=== PATIENT | male | born 1970 | race Caucasian/White ===

== ENCOUNTER 2018-12-07 13:33 | Inpatient (IN) ==
[2018-12-07] MEDS ORDERED: Clindamycin 900 MG/50 ML 900 MG/50 ML IV.SOLN IVPB ONE (13:53)
--- NOTE | 2018-12-07 13:53 | History & Physical Report ---
Date of Encounter: 12/07/18 Time of Encounter: 13:53 24 Hour HP Update - Instructions Instructions: If the History and Physical is less than 30 days old and was completed prior to A.M. admission and or procedure and has NOT been updated on calendar day of procedure please complete this update prior to performing procedure. - Update Patient reports changes in Medical Condition: No Changes in examination, assessment, or condition: No Changes in Medication: No Preop tests/diagnostics Reviewed: Yes Surgery Remains Indicated: Yes Consent for Planned Operative Procedure(s) Verified: Yes - Pre-Operative Checklist Preoperative Checklist Indicated: No Prophylactic Antibiotic Ordered: Yes Is VTE Prophylaxis Indicated?: Yes
[2018-12-07] MEDS ORDERED: Ringers Solution, Lactated 1,000 ML IVC SCH (14:00)
--- NOTE | 2018-12-07 14:21 | Anesthesia Evaluation PreOp ---
Date of Encounter: 12/07/18 Time of Encounter: 14:19 - Past History Planned Operation: Right Total Shoulder Cardiac History: HTN Pulmonary History: Former smoker (quit in 1999), Snore BLENDER History: Denies Any Significant HX Other Medical History: Other (depression) Anesthesia History: No Prior Anesthetic Complications, Past Anesthesia Alcohol Use: none Drug use: none Medications and Allergies Allergy/AdvReac Type Severity Reaction Status Date / Time No Known Allergies Allergy Verified 12/07/18 14:37 - Meds/Allergy Pre-op Review Medications Reviewed: Yes Allergies Reviewed: Yes Beta Blockers on Current Med List: No Anesthesia Exam O2 Sat Height 1.73 m Height 1.73 m Weight 118.388 kg Weight 118.388 kg O2 Sat by Pulse Oximetry 99 O2 Sat by Pulse Oximetry 99 Vital Signs Temp Pulse Resp BP Pulse Ox 98.0 F 83 18 132/85 99 12/07/18 13:52 12/07/18 13:52 12/07/18 13:52 12/07/18 13:52 12/07/18 13:52 Height: 5'8'' Weight: 261 lbs NPO (# of Hours): 8 Pain Scale: 6 (right shoulder) Pain Scale Used: Numeric (1 - 10) - HEENT Pupil (Motor): EOMI Mallampati: III Teeth: Normal Oral Opening: Greater than 3 - BLENDER LOC: Oriented BLENDER Motor: Normal RUE, Normal LUE, Normal RLE, Normal LLE, Normal Face BLENDER Sensory: Normal: RUE, LUE, RLE, LLE, Face - Cardiac Rhythm: Regular Murmur: None - Pulmonary Breath Sounds: bilateral Clear Respiratory Effort: Symmetrical Anesthesia Assess/Plan ASA Score: 2 Level of consciousness: Cooperative, Oriented, Tranquil Anesthetic Plan: General, Regional Nerve Block Monitoring Plan: Standard Monitors Recovery Plan: PACU
[2018-12-07] MEDS ORDERED: *HR* OxyCODONE Immed Rel 5 MG TABLET PO PRN (14:56)
[2018-12-07] MEDS ORDERED: Ondansetron 4 MG/2 ML VIAL IVP ONE (14:56)
[2018-12-07] MEDS ORDERED: *HR* Midazolam HCl 2 MG/2 ML VIAL ONE (15:03)
[2018-12-07] MEDS ORDERED: *HR* Propofol 200 MG/20 ML VIAL IVP ONE (15:03)
[2018-12-07] MEDS ORDERED: *HR* FentaNYL (PF) 100 MCG/2 ML VIAL ONE (15:03)
[2018-12-07 15:04] LABS: Basophils % 0.2 %; Eosinophils # 0.2 K/mcL (0.0-0.6); Eosinophils % 2.2 %; Hemoglobin 13.8 g/dL (12.9-16.9); Immature Granulocytes % 0.5 % (0-4); Lymphocytes # 1.9 K/mcL (0.6-4.6); Lymphocytes % 21.2 %; Mean Corpuscular HGB Conc 32.9 g/dL (31.6-35.5); Mean Corpuscular Hemoglobin 29.2 pg (28.0-33.3); Mean Corpuscular Volume 88.8 fL (83.0-100.0); Mean Platelet Volume 9.2 fL (9.4-12.4); Monocytes # 0.5 K/mcL (0.0-1.3); Monocytes % 5.1 %; Neutrophils # 6.2 K/mcL (1.6-8.9); Platelet Count 261 K/mcL (140-400); Red Blood Count 4.73 M/mcL (4.19-5.50); Segmented Neutrophils % 70.8 %; White Blood Count 8.8 K/mcL (4.3-11.1)
[2018-12-07] MEDS ORDERED: Lidocaine -MPF 2% 2 ML VIAL ONE (15:06)
[2018-12-07] MEDS ORDERED: *HR* Midazolam HCl 5 MG/5 ML VIAL IVP ONE (15:11)
[2018-12-07] MEDS ORDERED: Ropivacaine/PF 0.5% 30 ML VIAL ONE (15:11)
[2018-12-07] MEDS ORDERED: ROPIVACAINE/PF/NS 0.25% 1 EACH SYRINGE INTRAART ONE (15:11)
[2018-12-07 15:23] LABS: BUN/Creatinine Ratio 15 (6-26); Blood Urea Nitrogen 14 mg/dL (6-20); Calcium 9.1 mg/dL (8.6-10.3); Carbon Dioxide 29 mEq/L (23-29); Chloride 103 mEq/L (98-107); Glucose 90 mg/dL (70-105); Osmolality,Calculated 284 (280-300); Sodium 137 mEq/L (136-145); eGFR For African Americans > 60 (> 60); eGFR For Non-African Americans > 60 (> 60)
[2018-12-07] MEDS ORDERED: Ethanol\\Acetic Acid\\Na Ace\\Ben 1,000 ML IRRIG.SOLN IR ONE (15:27)
[2018-12-07] MEDS ORDERED: *HR* Succinylcholine 200 MG/10 ML VIAL IVP ONE (15:32)
--- NOTE | 2018-12-07 15:34 | Anesthesia Procedures ---
Date of Encounter: 12/07/18 Time of Encounter: 15:15 Procedures: Anesthesia - Nerve Block Procedure Date: 12/07/18 Time: 15:15 Surgical Procedure: right total shoulder replacment Checklist: Correct Patient Identifier, Correct procedure, History checked Correct side: Right Monitor Applied: BP, Pulse Oximetry Supplemental Oxygen via Nasal Cannula (L/min): 2 Sedation: Versed (mg): 5 Indication: Post Op Analgesia Block Type: Supraclavicular Catheter placed: No Sterile Technique: Yes Ultrasound used: Yes Anatomy identified: Yes Visual spread of Local: Yes Neuro Stimulation: No Nerve Stimulator Range: 0.2 - 0.4 mA Blood on Needle Aspiration: No Smooth Injection of Local: Yes Pain with Injection of Local: No Prep: Chlorhexadine Needle: 22 x 50 mm Stimuplex Local: Ropivacaine (30ml of 0.5% rop with 8md decadron for supraclav, (8ml for SCP, 12ml for ICB all for 0.25% rop plain)) Volume (cc): 52 Number of Attempts: 1 Complications: None/effective block Vitals: vss though out, block per request of surgeon.
[2018-12-07] MEDS ORDERED: Ondansetron 4 MG/2 ML VIAL ONE (16:14)
[2018-12-07] MEDS ORDERED: Dexamethasone 4 MG/ML VIAL ONE (16:14)
--- NOTE | 2018-12-07 16:39 | Orthopedic Operative Note ---
Date of procedure: 12/07/18 Pre-op diagnosis: Right shoulder cuff tear arthropathy Post-op diagnosis: same Procedure: Procedure: Total Shoulder Replacment Reverse, right Estimated blood loss: 100 cc Hardware: Metal and polyethylene replacement: Arthrex 28, +2 , 30 mm post glenoid baseplate, 4 locking 5.5 screw, 42+4 glenosphere, 10 Sparta humeral stem, poly insert 3 Exam Under anesthesia: Full motion no instability Procedural Notes: Irreparable rotator cuff tear Operative procedure: The patient was brought to the operating room and placed on the operating room table. After general anesthesia was administered the operative shoulder was examined. Findings were noted. The patient was placed in the modified beachchair position. All pressure points were padded appropriately. And the head was stabilized in the neutral position. The operative extremity was prepped and draped in the sterile surgical fashion. The patient received IV antibiotics prior to skin incision. A standard deltopectoral approach was made to the operative shoulder. Incision was made to the skin and subcutaneous tissue,hemo stasis was obtained with Bovie cautery. Using careful blunt dissection the cephalic vein was identified and mobilized medially. The deltopectoral interval was developed and the clavipectoral fascia was incised. The subscap was released off the lesser tuberosity and tagged with #2 FiberWire suture subscap was irreparable. The humerus was dislocated patient noted to have irreparable tear supraspinatus tendon, and the humeral cut was made along the anatomic neck. Anterior and posterior Bankart retractors were placed to expose the glenoid. The glenoid guide was seated and the centering hole was made. It was reamed with the appropriate reamer. The baseplate was seated and secured with 4 locking 5.5 screw. The baseplate was irrigated and dried and the Glenosphere was seated and secured with the Flanagan taper. The Flanagan taper was tested and found to be secure, glenosphere fixation was secondarily secured with the central screw. The humerus was redislocated and prepared with the diaphyseal reamers, followed by a broaching process up to the appropriate size Sparta stem in the patient's anatomic version. The metaphyseal reamer was then utilized. Trial reduction found the shoulder to be relocatable. Trial components were removed and the Sparta stem was impacted in place in the patient's anatomic version. Trial reduction found the shoulder to be relocatable and stable with the appropriate 3 poly. Trial component was removed and the real implant was seated and secured the shoulder was reduced. The shoulder had excellent motion and exc ellent stability and no evidence of dislocation. The deep tissue was irrigated with pulse irrigation. The PA close the shoulder. The deltopectoral interval was closed with a running #1 PDS suture, subcutaneous tissue was irrigated and closed with 0 PDS suture, the skin was closed with Dermabond. The patient was placed in a sterile dressing, abduction brace and extubated. The patient was then transferred to the recovery room in stable condition. Anesthesia: GETA Surgeon: Bharath Burnham Was there an power plant assistant present: No Estimated blood loss (cc): 100 Condition: stable Disposition: PACU
--- NOTE | 2018-12-07 17:00 | Discharge Summary ---
Orders not resulted at time of discharge: Pending orders 12/07/18 16:29 Surgical Pathology [PTH] Routine Date of Encounter: 12/08/18 Time of Encounter: 10:45 - Discharge Diagnosis (1) Rotator cuff tear arthropathy of right shoulder Priority: Primary Status: Chronic (2) Status post total replacement of right shoulder Priority: Primary Status: Acute (3) Obesity Priority: Secondary Status: Chronic Qualifiers: Obesity type: unspecified obesity type Obesity classification: adult class 2 (BMI 35 - 39.9) Serious obesity comorbidity presence: unspecified whether serious comorbidity present Body mass index: BMI 37.0-37.9 Qualified Code(s): E66.9 - Obesity, unspecified; Z68.37 - Body mass index (BMI) 37.0-37.9, adult (4) Chronic pain Priority: Secondary Status: Chronic Qualifiers: Chronic pain type: other chronic pain Qualified Code(s): G89.29 - Other chronic pain - Hospital Course Hospital course: Mr. Gamez is a 47 year old male s/p Total Shoulder Replacment Reverse, right [Right shoulder cuff tear arthropathy] 12/07/18 Patient seen at bedside. A&Ox3 Dressing and incision c/d/i No calf tenderness, erythema, or warmth. Neurovascularly intact b/l UE. Labwork, vitals, and medications reviewed. Pain control: Adequate Participating in therapy. All questions and concerns addressed. Educated on use of incentive spirometer, ambulation, and hydration. Patient educated on post-operative restrictions and care. Addressed: continue chronic pain medication The patient's postoperative course was uneventful. Progressed from intravenous analgesic needs to oral analgesic needs only. Remained neurovascularly intact and mobilized satisfactorily. All radiographic studies were satisfactory. Patient course and disposition discussed with Dr. Burnham. Patient is discharged to home with plan for rehabilitation and outpatient orthopedic follow up has been arranged. - Time Spent with Patient Total time spent providing and/or coordinating discharge services: - Discharge Medications Prescriptions: New Cyclobenzaprine [Flexeril] 10 mg PO TID PRN 7 Days #21 tablet PRN Reason: Spasms Continued OxyCODONE Immed Rel [Roxicodone 30 MG] 30 mg PO Q4H PRN PRN Reason: Pain Morphine Sulfate [Morphine Sulfate ER] 60 mg PO TID Home Medications: Morphine Sulfate [Morphine Sulfate ER] 60 mg PO TID 12/07/18 [History] OxyCODONE Immed Rel [Roxicodone 30 MG] 30 mg PO Q4H PRN 12/07/18 [History] Cyclobenzaprine [Flexeril] 10 mg PO TID PRN 7 Days #21 tablet 12/08/18 [Rx] Allergies/Adverse Reactions: Allergy/AdvReac Type Severity Reaction Status Date / Time No Known Allergies Allergy Verified 12/07/18 14:37 Date of admission: 12/07/18 Primary care physician: Rona Mcdowell MD Discharging clinician: Bharath Burnham Anticipated date of discharge: 12/08/18 - VTE Documentation of Mechanical Device: Venous foot pump, device Labs on day of discharge: Labs from last 24 hours 12/07/18 12/07/18 14:51 14:51 WBC 8.8 RBC 4.73 Hgb 13.8 Hct 42.0 MCV 88.8 MCH 29.2 MCHC 32.9 RDW 13.0 Plt Count 261 MPV 9.2 L Immature Gran % 0.5 Seg Neutrophils % 70.8 Lymphocytes % 21.2 Monocytes % 5.1 Eosinophils % 2.2 Basophils % 0.2 Neutrophils # 6.2 Lymphocytes # 1.9 Monocytes # 0.5 Eosinophils # 0.2 Basophils # 0.0 Sodium 137 Potassium 4.0 Chloride 103 Carbon Dioxide 29 BUN 14 Creatinine 0.91 Est GFR ( Amer) > 60 Est GFR (Non-Af Amer) > 60 BUN/Creatinine Ratio 15 Glucose 90 Calculated Osmolality 284 Calcium 9.1 - Patient Status Disposition: Home, Self-Care Condition: Good Functional capacity at discharge: independent ambulation Overall status at discharge: patient is progressing back to baseline - Discharge Instructions Instructions: Joint Replacement Surgery (GEN), Joint Replacement Surgery, Fence Installer (GEN) Follow Up With: Rona Mcdowell MD [Primary Care Provider] - Alta Newman CNP [Advanced Practice Nurse] - 12/17/18 11:00 am Additional Instructions: Do NOT push yourself up off bed or chair using surgical arm Do NOT lift anything heavier than a glass of water for [address] your arm in extreme positions ex: Straight behind your back Leave dressing in place, keep incision clean and dry DO NOT take baths, swim, or soak incision Wear brace when sleeping, in public Follow exercises given by provider and therapy NO driving until cleared by provider - Diet and Activity Activity: as per physical therapy Diet: advance to your usual diet
[2018-12-07] MEDS: *HR* HYDROmorphone (PF) 1 MG/ML SYRINGE IVP PRN ×4 (17:18→17:43)
--- NOTE | 2018-12-07 17:53 | Anesthesia Evaluation Post Op ---
Date of Encounter: 12/07/18 Time of Encounter: 17:52 - Vital Signs Vital Signs: Vital Signs/O2 Sat, Most Current Temp Pulse Resp BP Pulse Ox 97.7 F 93 14 130/88 96 12/07/18 17:28 12/07/18 17:48 12/07/18 17:48 12/07/18 17:48 12/07/18 17:48 - Airway Airway: Non-obstructed - Cardiovascular Regular Rate - Mental Status Mental Status: Alert & Oriented, Answers Appropriately - Pain Pain Scale: 5 Pain Scale used: Numeric (1 - 10) - Nausea Vomiting Nausea Vomiting: Not Present - Hydration Hydration: Ice chips - Discharge PostOp Status: Transfer Patient to floor
[2018-12-07 17:57] LABS: Hematocrit 39.1 % (37.5-50.1); Hemoglobin 12.8 g/dL (12.9-16.9)
[2018-12-07] MEDS ORDERED: *HR* Enoxaparin 30 MG/0.3 ML SYRINGE SQ SCH (18:00)
[2018-12-07] MEDS ORDERED: MOM Conc 10 ML UD.LIQ PO PRN (18:04)
[2018-12-07] MEDS ORDERED: Temazepam 15 MG CAPSULE PO PRN (18:04)
[2018-12-07] MEDS ORDERED: Ondansetron 4 MG/2 ML VIAL IVP PRN (18:04)
[2018-12-07] MEDS ORDERED: traMADol 50 MG TABLET PO PRN (18:04)
[2018-12-07] MEDS ORDERED: Clindamycin 900 MG/50 ML 900 MG/50 ML IV.SOLN IVPB SCH (18:04)
[2018-12-07] MEDS ORDERED: Sennosides 8.6 MG TABLET PO PRN (18:04)
[2018-12-07] MEDS ORDERED: Naloxone 0.4 MG/ML INJ IVP PRN (18:04)
[2018-12-07] MEDS: Ringers Solution, Lactated 1,000 ML IVC SCH (20:37)
[2018-12-07] MEDS: Morphine Sulfate ER (12 HR) 60 MG TABLET.ER PO SCH (20:38)
[2018-12-07] MEDS: *HR* OxyCODONE Immed Rel 15 MG TABLET PO PRN (21:49)
[2018-12-08] MEDS: Clindamycin 900 MG/50 ML 900 MG/50 ML IV.SOLN IVPB SCH ×2 (00:02→08:56)
[2018-12-08] MEDS: *HR* OxyCODONE Immed Rel 15 MG TABLET PO PRN ×3 (02:10→11:50)
[2018-12-08 05:26] LABS: Hemoglobin 12.8 g/dL (12.9-16.9)
[2018-12-08 05:42] LABS: BUN/Creatinine Ratio 24 (6-26); Blood Urea Nitrogen 17 mg/dL (6-20); Calcium 8.8 mg/dL (8.6-10.3); Carbon Dioxide 26 mEq/L (23-29); Chloride 104 mEq/L (98-107); Glucose 153 mg/dL (70-105); Osmolality,Calculated 287 (280-300); Potassium 4.5 mEq/L (3.5-5.1); Sodium 136 mEq/L (136-145); eGFR For African Americans > 60 (> 60); eGFR For Non-African Americans > 60 (> 60)
[2018-12-08] MEDS ORDERED: *HR* Enoxaparin 30 MG/0.3 ML SYRINGE SQ SCH (06:00)
--- NOTE | 2018-12-08 06:24 | Orthopedics Progress Note ---
Date of Encounter: 12/08/18 Time of Encounter: 06:24 Subjective Interval history: Patient was seen this morning doing well without complaints. Afebrile vital signs stable. Operative extremity: Neurovascularly intact Dressing clean dry and intact Calves nontender Assessment and plan: Continue with postoperative care Hematocrit 39 discharge today Objective Vital signs: Vital Signs Temp Pulse Resp BP Pulse Ox 12/08/18 03:33 97.9 F 95 17 138/86 96 12/07/18 21:30 97.5 F L 93 16 132/83 94 12/07/18 20:45 95 12/07/18 20:30 98.0 F 92 16 142/85 95 12/07/18 19:30 87 15 138/88 95 12/07/18 19:00 91 15 144/89 95 12/07/18 18:31 83 16 127/83 94 12/07/18 17:58 98.5 F 91 14 132/87 97 12/07/18 17:48 93 14 130/88 96 12/07/18 17:38 92 16 131/94 98 12/07/18 17:28 97.7 F 92 18 133/89 97 12/07/18 17:18 94 16 132/83 97 12/07/18 17:08 99 16 122/79 98 12/07/18 16:58 97.8 F 94 16 130/71 97 12/07/18 15:45 80 16 106/65 98 12/07/18 15:31 82 16 111/70 99 12/07/18 15:15 74 16 126/75 97 12/07/18 14:02 98.0 F 83 18 132/85 99 12/07/18 13:52 98.0 F 83 18 132/85 99 Intake and Output 12/07/18 12/07/18 12/08/18 15:59 23:59 07:59 Output Total 100 / 100 Balance -100 / -100 Output: Estimated Blood Loss 100 / 100 Other: # Voids 1 Weight 118.388 kg 118.5 kg Patient Weight 12/08/18 23:59 Weight 118.5 kg - Labs CBC & BMP: 12/08/18 04:40 12/08/18 04:40 Labs: Abnormal lab results Hgb 12.8 g/dL (12.9-16.9) L 12/08/18 04:40 MPV 9.2 fL (9.4-12.4) L 12/07/18 14:51 Glucose 153 mg/dL (70-105) H 12/08/18 04:40 - VTE Documentation of Mechanical Device: Intermittent pneumatic compression device Consult Discharge Plan - Plan Referrals: Rona Mcdowell MD [Primary Care Provider] -
[2018-12-08] MEDS: Morphine Sulfate ER (12 HR) 60 MG TABLET.ER PO SCH (08:56)
[2018-12-08 10:54] VITALS: BP 150/86
[2018-12-08] MEDS: Ringers Solution, Lactated 1,000 ML IVC SCH (11:47)
[2018-12-08] MEDS ORDERED: FLU Vac QV 19-20 (6Month+)/PF 0.5 ML SYRINGE IM ONE (12:01)
== END 2018-12-08 12:45 | disposition home or self-care (01) | DRG 483 ==
LOC: SAMDAY 13:33 → 3NENU 19:01
PROVIDERS: ADMIT Orthopaedic Surgery; ATTEND Orthopaedic Surgery